=== PATIENT | female | born 1960 | race Caucasian/White ===

== ENCOUNTER → 2023-08-11 07:12 | Outpatient (REF) | payer OTHER, SELFPAY | LOC: WDC 07:12 | PROVIDERS: ATTENDING PHYSICIAN Obstetrics & Gynecology Gynecology; FAMILY PHYSICIAN Internal Medicine | DX: Z12.31 Encounter for screening mammogram for malignant neoplasm of breast (principal) | CPT/HCPCS: 77063; 77067 ==

== ENCOUNTER → 2023-12-27 08:06 | Outpatient (REF) | payer OTHER, SELFPAY | LOC: RAD 08:06 | PROVIDERS: ATTENDING PHYSICIAN Nurse Practitioner | DX: Z13.820 Encounter for screening for osteoporosis (principal) | CPT/HCPCS: 77080 ==

== ENCOUNTER → 2023-12-28 11:18 | Outpatient (REF) | payer OTHER, SELFPAY | LOC: RAD 11:18 | PROVIDERS: ATTENDING PHYSICIAN Internal Medicine Cardiovascular Disease; FAMILY PHYSICIAN Internal Medicine | DX: I65.23 Occlusion and stenosis of bilateral carotid arteries (principal) | CPT/HCPCS: 93880 ==

== ENCOUNTER → 2024-02-09 08:21 | Outpatient (REF) | payer OTHER, SELFPAY | LOC: RCS 08:21 | PROVIDERS: ATTENDING PHYSICIAN Internal Medicine Cardiovascular Disease; FAMILY PHYSICIAN Internal Medicine | DX: I35.1 Nonrheumatic aortic (valve) insufficiency (principal) | CPT/HCPCS: 93306; Q9957 ==

== ENCOUNTER → 2024-08-16 07:18 | Outpatient (REF) | payer MEDICARE, OTHER, SELFPAY | LOC: WDC 07:18 | PROVIDERS: ATTENDING PHYSICIAN Obstetrics & Gynecology Gynecology; FAMILY PHYSICIAN Internal Medicine | DX: Z12.31 Encounter for screening mammogram for malignant neoplasm of breast (principal) | CPT/HCPCS: 77063; 77067 ==

== ENCOUNTER → 2024-08-30 08:50 | Outpatient (REF) | payer MEDICARE, OTHER, SELFPAY | LOC: WDC 08:50 | PROVIDERS: ATTENDING PHYSICIAN Obstetrics & Gynecology Gynecology; FAMILY PHYSICIAN Internal Medicine | DX: R92.8 Other abnormal and inconclusive findings on diagnostic imaging of breast (principal) | CPT/HCPCS: 77061; 77065 ==

== ENCOUNTER → 2025-02-22 12:41 | Outpatient (REF) | payer MEDICARE, OTHER, SELFPAY | LOC: WDC 12:41 | PROVIDERS: ATTENDING PHYSICIAN Obstetrics & Gynecology Gynecology; FAMILY PHYSICIAN Internal Medicine | DX: R92.8 Other abnormal and inconclusive findings on diagnostic imaging of breast (principal) | CPT/HCPCS: 77061; 77065 ==

== ENCOUNTER 2025-04-28 17:14 | Inpatient (IN) | payer MEDICARE, OTHER, SELFPAY ==
[2025-04-28] VITALS (23 sets, daily range): BP systolic 103–168; BP diastolic 37–109; BMI 36.3; BMI 35.7
--- NOTE | 2025-04-28 14:53 | EDRN ---
Dr. Brooks in room w/ pt at this time.
[2025-04-28] MEDS: CARDIZEM 10 MG IV (15:03)
[2025-04-28] MEDS: NSS 1000 IV (15:03)
[2025-04-28 15:11] LABS: Hematocrit 46.4 % (37.0-47.0); Hemoglobin 15.9 g/dL (12.0-16.0); Mean Corp Hgb Conc. 34.3 g/dL (33.0-37.0); Mean Corpuscular Volume 84.1 fL (81.0-99.0); Nucleated Red Blood Cells % 0 %; Platelet Count 251 10^3/uL (130-400); Red Cell Dist. Width 13.9 % (11.5-14.5)
--- NOTE | 2025-04-28 15:16 | ED.GENMED ---
History of Present Illness
General
Chief Complaint: Chest Pain
Source: patient
Exam Limitations: none
Time Seen by Provider: 04/28/25 14:33
Nursing documentation reviewed up to this point in time: agreed with
History of Present Illness
History of Present Illness:
64-year-old female with history of GERD, aortic stenosis who presents to the emergency department for evaluation of chest discomfort and palpitations, shortness of breath, sweatiness. Patient reports onset of symptoms yesterday evening while at
rest of palpitations and chest discomfort that resolved after few hours. Symptoms returned this morning and have been constant all day�she describes a sensation of palpitations/'flip-flopping' of her heart associated with general chest discomfort,
feeling of shortness of breath with mild dizziness and some mild sweatiness. She denies having had similar symptoms in the past. She does see Dr. Meme Valadez for history of aortic stenosis but denies any other known cardiac issues. She does
report that she has had similar symptoms although less severe off and on for years but never persistent or severe like today. She was noted to be in atrial fibrillation on her triage EKG�this is a new diagnosis for her.
Past History
Past History
ED Past Medical History: GERD and Other (Headaches)
ED Past Surgical History: Gynecological (Uterine fibroid, D&C) and Orthopedic (Right ankle surgery with pins)
Patient has exhibited threatening behavior?: No
Social History
Tobacco: Non-smoker
Alcohol: None
Drug: None
Personal:
Living: with family
Family History
Family History: Cancer (breast cancer)
Review of Systems
Review of Systems
All Other Systems: ROS reviewed and negative except as documented in HPI and ROS
Constitutional: Denies fever
Respiratory: Reports trouble breathing; Denies cough
Cardiac: Reports chest pain, diaphoresis and palpitations; Denies syncope
ABD/GI: Denies abdominal pain, nausea or vomiting
: Denies flank pain
Musculoskeletal: Denies edema
Neurological: Reports dizzy; Denies headache
Phy Exam
Physical Exam
Physical Exam:
General: Awake, alert, oriented x3; somewhat anxious but nontoxic-appearing
Head: Normocephalic, atraumatic
Eyes: Conjunctiva normal, sclera anicteric
Throat: Airway intact, handling secretions
Neck: Trachea midline, no JVD
Lungs: Clear to auscultation bilaterally, no wheezing, rales, rhonchi
Heart: Tachycardia with irregularly irregular rhythm, no murmurs, gallops, or rubs
Abd: Soft, non distended, nontender
Neuro: Grossly intact
Skin: Warm and dry
Extremities: No edema in extremities, equal pulses in all extremities
Scores
[id number] Score for Afib Stroke Risk
Age in Years (65=0, 65-74=1, >/=75=2): 65-74
Sex (Female=+1): Female
Congestive Heart Failure History (Yes=+1): No
Hypertension History (Yes=+1): Yes
Stroke/TIA/Thromboembolism History (Yes=+2): No
Vascular Disease History (Yes=+1): No
Diabetes Mellitus (Yes=+1): No
Score: 3
Anticoagulation Recommendations: Recommend anticoagulation (as validated in nonvalvular fib)
Heart Failure Risk
Heart Failure Risk Score: Not Applicable
Heart Score for Chest Pain Patients
STEMI patient?: Not applicable
Withdrawal Assessment of Alcohol
Withdrawal Assessment Completed?: Not applicable
Course
Orders/Labs/Results
Orders:
Orders
04/28/25 14:12
ECG [Electrocardiogram (*1)] Urgent
Reason for Study: Chest Pain
EKG- Treatment ONCE
04/28/25 14:51
Complete Blood Count/With Diff Urgent
Comprehensive Metabolic Panel Urgent
Magnesium Urgent
Troponin I Urgent
04/28/25 14:57
Diltiazem HCl [Cardizem] 10 mg IV NOW STA
04/28/25 14:58
0.9% Sodium Chloride 1000 ml [Nss] 1,000 ml IV BOLUS
04/28/25 15:15
Apixaban [Eliquis] 5 mg PO ONCE ONE
04/28/25 15:16
Metoprolol Xl [Toprol Xl] 25 mg PO NOW STA
04/28/25 15:20
CR Chest Portable - 1 View Urgent
Comment:
Reason For Exam: sob, chest pain
Reason Study Needs to be Portable: Unable to Transport
04/28/25 15:22
TSH Reflex To Free T4 Urgent
04/28/25 15:58
Diltiazem 125 mg/125 ml Nss [Cardizem] 125 mg in 125 ml IV NOW
Initial dose in mg/hr, then titrate:: 5
Titrate to keep:: Heart rate 80-100 bpm
Titrate by mg/hr:: 5 mg/hr
Frequency of titrations (minutes):: 15
Maximum dose in mg/hr:: 15
04/28/25 16:37
Admit/Transfer Patient As Directed
Co-Sign Provider:
Level of Care: Inpatient admission
Assign to:: IVU
Physician / Group: mitali soni
Diagnosis: new onset afib rvr, trop vaughn ischemic demand
Reason for Hospitalization: new onset afib rvr, trop vaughn ischemic demand
Expected length of stay greater than two midnights?: Yes
ELOS- Estimated Length of Stay in days: 3
I certify the patient meets the requirements for IP care: Yes
Code Status As Directed
Resuscitation Status: Full Code
04/28/25 16:41
PRN Pain Medication Management As Directed
May give lesser potent ordered pain med per pt: Yes
preference::
Protocol:: Medication orders for pain may be administered in a
manner that supports deferring to patient preference
when the pt is:
- Requesting an ordered lesser potent pain medication.
Least to most potent pain medications are defined
as: acetaminophen < NSAID < tramadol < opioids
(morphine, oxycodone, hydromorphone).
- Requesting a lesser dose of the same medication IF
ORDERED.
- Requesting a less intrusive route of administration
if both routes are prescribed by the provider (PO <
IV).
04/28/25 18:00
Troponin I Urgent
Abnormal Lab Results
04/28/25
14:51
WBC 13.3 H 10^3/uL
(4.8-10.8)
RBC 5.52 H 10^6/uL
(4.20-5.40)
Abs Immat Gran (auto) 0.1 H 10^3/uL
(0-0.05)
Absolute Neuts (auto) 9.7 H 10^3/uL
(1.4-6.5)
Absolute Monos (auto) 1.0 H 10^3/uL
(0.1-0.6)
Immature Gran % 0.7 H %
(0-0.5)
Lymphocytes % 16.7 L %
(20.5-51.1)
Glucose 112 H mg/dl
(70-99)
Troponin I 0.161 H* ng/ml
04/28/25 14:51
04/28/25 14:51
Vital Signs
Initial and Last Documented VS:
Initial Vital Signs
Temp Pulse Resp BP Pulse Ox
36.9 C 84 16 132/103 97
04/28/25 14:18 04/28/25 14:18 04/28/25 14:18 04/28/25 14:18 04/28/25 14:18
Last Documented Vital Signs
Temp Pulse Resp BP Pulse Ox
36.9 C 136 25 147/100 97
04/28/25 14:18 04/28/25 16:51 04/28/25 16:51 04/28/25 16:51 04/28/25 16:51
MDM/Problems Addressed
Differential Diagnosis Includes:
Symptomatic A-fib, ACS, pneumonia, less likely PE
MDM/Problems Addressed:
64-year-old female presents for evaluation of palpitations associated with chest discomfort, dizziness and shortness of breath had an episode last night and then started again today and has been consistent. Has had similar episodes albeit much less
intense and shorter in duration for years now. Found to have A-fib with RVR on triage EKG. Heart rate 150s during my assessment, normotensive, no tachypnea or hypoxia, no fever. Physical exam is as noted. Plan to check basic labs, troponin,
TFTs. Check chest x-ray. Will treat with IV diltiazem and provide some IV fluids. Eliquis pending CBC to rule out thrombocytopenia or anemia ([id number]). Reassess after the above.
Heart rate greatly improved after IV diltiazem x 1 dose now heart rate in the 90s to low 100s. Will provide p.o. Toprol to try and maintain good rate control. CBC is back she does have slight leukocytosis but no anemia and acceptable
platelets�will proceed with p.o. Eliquis.
Unfortunately patient again having runs of significant tachycardia and symptoms. Will start on diltiazem infusion for rate control. Troponin was slightly elevated likely from demand we will need to trend this but suspect related to A-fib. Will
plan to admit for continued management of rapid atrial fibrillation requiring diltiazem infusion for adequate rate control. Discussed case with hospitalist for admission.
*Radiology
Radiology exam reviewed: preliminary read by ED provider
*Pulse Oximetry
SaO2: 98
Oxygen Mode of Delivery: Room air
Patient hypoxic: no (98%)
*EKG
Interpreted by ED Provider?: Yes
Heart Rate: 151
Rate: tachycardiac
Rhythm: a-fib
[place]: normal axis
Interval: normal interval
QRS Pattern: normal QRS
Ischemia: non-specific ST changes
*Critical Care Note
Total Time (30-74mins, 75-104mins- exclusive of procedures): 31
comment:
Critical care statement: A total of 31 minutes of critical care time was provided for this patient. This includes management of unstable vital signs, evaluation of the patient at bedside, frequent reassessment, discussion with
consultants/hospitalist, and review of pertinent medical records. This time was separate from time utilized to perform any aforementioned documented procedures
Data Reviewed
Source: patient and records
Patient Management
Discussion with other providers: Hospitalist (Discussed with hospitalist)
Escalation/DeEscalation of care consider admission/obs:
Admission indicated
ED Attending Note
-
Portions of this chart may have been created with voice recognition software.� Occasional wrong word or��sound alike� substitutions may have occurred due to the inherent limitations of voice recognition software.
Discharge Plan
Departure
Patient Disposition: Admit
Date of Disposition: 04/28/25
Time of Disposition: 15:59
Admit to doctor: Aurelia
Presentation/result/management discussed w/ accepting MD/DO: Hospitalist
Discharge Problem:
Atrial fibrillation with RVR
Interventions
Interventions:
*Risk Screen - Suicide Last Done: 04/28/25 14:20
*General Assessment Last Done: 04/28/25 16:56
*Neglect/Abuse Screening Last Done: 04/28/25 14:20
*ED COVID-19 Vaccine History Last Done: 04/28/25 15:05
*ED Influenza Vaccine History Last Done: 04/28/25 15:05
ED- Cardiac Assessment Last Done: 04/28/25 15:05
[2025-04-28] MEDS: ELIQUIS 5 MG PO (15:20)
[2025-04-28] MEDS: TOPROL XL 25 MG PO (15:20)
[2025-04-28 15:32] LABS: ALT (SGPT) 25 U/L (0-35); AST (SGOT) 26 U/L (14-36); Albumin 4.4 g/dl (3.5-5.0); Alkaline Phosphatase 70 U/L (38-126); Blood Urea Nitrogen 16 mg/dl (7-17); Calcium 10.2 mg/dl (8.4-10.2); Carbon Dioxide 25 mmol/L (22-30); Chloride 106 mmol/L (98-107); Estimated Creatinine Clearance 68 ml/min; Glucose 112 mg/dl (70-99); Magnesium 2.1 mg/dl (1.6-2.3); Potassium 4.2 mmol/L (3.5-5.1); Sodium 138 mmol/L (135-145); Total Protein 7.2 g/dl (6.3-8.2); eGFR > 60.00
[2025-04-28 15:47] LABS: Troponin I 0.161 ng/ml
--- NOTE | 2025-04-28 16:09 | HPS.HSE ---
Family Physician
<MEHNAZ Conde - Last Filed: 04/28/25 17:30>
-
Family Physician: Gregorio Reid
Chief Complaint
<MEHNAZ Conde - Last Filed: 04/28/25 17:30>
-
Chest pain, palpitations, shortness breath, diaphoresis
History of Present Illness
64-year-old female complaining of chest discomfort with palpitations, shortness of breath and diaphoresis starting yesterday evening along orthopnea. She states she was unable to sleep due to not being able to lie flat. She reports mild chest
discomfort currently with heart rate in the 130s. In the ER she was noted to be in rapid A-fib with RVR. She was placed on IV Cardizem and Eliquis per request of [facility] cardiology. She denies current headache, fever, chills, sore throat, abdominal
pain, nausea, vomit, diarrhea, urinary symptoms. 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
evaluation at [place], class II obesity.
Medical History
<MEHNAZ Conde - Last Filed: 04/28/25 17:30>
Past Medical History
Past Medical History: Reports Other
Additional Past Medical History:
aortic stenosis
HTN
GERD
headaches
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
Class II obesity
Additional Past Surgical History:
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
Deviated septum repair 2020
Tonsillectomy x 2
Social History
Tobacco: Non-smoker
Alcohol: None
Drug: None
Family History
Family History: Early CAD (Sister [place] age 50s) and Other (Mother CAD CABG [place] DM 2 HTN uncontrolled age 58, sister [place] age 50s DM 2 obesity HTN, sister CVA age 40 secondary possible A-fib, brother large ischemic CVA age 59 , father
unknown)
Allergies / Home Medications
Allergies reflects when Allergies were last updated in [facility].
Home Medications with original date entered in [facility]
Allergy/Medication List:
Allergies
Allergy/AdvReac Type Severity Reaction Status Date / Time
No Known Allergies Allergy Verified 11/20/21 06:33
Home Medications
calcium carbonate 1,000 mg PO DAILY 11/17/21
cholecalciferol (vitamin D3) 50 mcg (2,000 unit) capsule (Vitamin D3) 150 mcg PO DAILY 11/17/21
rizatriptan 10 mg tablet 10 mg PO PRN PRN headache 11/17/21
Lactobac no.2-Bifidobac no.1-S. thermo 112.5 billion cell capsule (Visbiome) 1 cap PO DAILY 04/28/25
aluminum hydrox-magnesium carb 160 mg-105 mg chewable tablet 2 tab PO DAILYPRN PRN stomach upset 04/28/25
amlodipine 5 mg tablet 5 mg PO DAILY 04/28/25
ibuprofen 200 mg tablet 400 mg PO DAILYPRN PRN headache 04/28/25
<Maximiliano Moses MD - Last Filed: 04/28/25 17:31>
Past Medical History
Past Surgical History: Reports Other (See H&P)
Review of Systems
<MEHNAZ Conde - Last Filed: 04/28/25 17:30>
-
History Source: Patient
A 12 point ROS was completed and negative except as noted: Yes
Constitutional: Denies Fever or Chills
EENT: Denies Sore Throat
Respiratory: Reports Trouble Breathing (With rapid heart rate); Denies Cough
Cardiac: Reports Chest Pain (With rapid A-fib), Diaphoresis (With rapid A-fib) and Palpitations
Abdomen/GI: Denies Abdominal Pain, Nausea, Vomiting or Diarrhea
: Denies Dysuria, Frequency, Flank Pain or Incontinence
Musculoskeletal: Denies Joint Pain or Joint Swelling
Skin: Denies Itching or Rash
Neurological: Denies Dizzy, Headache or Weakness
Endocrine: Reports No Symptoms
Hematologic/Lymphatic: Reports No Symptoms
Psych: Reports Calm
Physical Exam
<MEHNAZ Conde - Last Filed: 04/28/25 17:30>
Vital Signs
Vital Signs
Temp Pulse Resp BP Pulse Ox
98.5 F 102 22 151/93 98
04/28/25 14:18 04/28/25 15:20 04/28/25 15:00 04/28/25 15:20 04/28/25 15:20
Physical Exam
General: Comfortable, Conversant and Obese; No Fever or Chills
HEENT: NormoCephalic, Anicteric, Moist mucous membranes, PERRLA, [place] Conjunctivae and No Ptosis
Respiratory: Clear; No Wheezes, Rales or Rhonchi
Cardiac: S1/S2 and Irregular Rhythm (A-fib RVR heart rate 130 bpm on monitor); No Murmur, Rub, Gallop or Peripheral Edema
Breast: Deferred by me
GI: Soft, Non Tender, Non Distended, Normal Bowel Sounds and No Hepatosplenomegaly
Rectal: Deferred by Provider
Genito-urinary: Deferred by me
Musculoskeletal: No Clubbing, No Cyanosis and No Edema
Skin: Warm and Dry; No Rash
Neuro: AO x 3, No Motor Deficits, Cranial Nerves Intact and No Sensory Deficits; No Slurred Speech, Facial Droop or Tremors
Psych: Calm
Laboratory Results
<MEHNAZ Conde - Last Filed: 04/28/25 17:30>
-
04/28/25 14:51
04/28/25 14:51
Laboratory Results
Total Bilirubin 0.5 mg/dl (0.2-1.3) 04/28/25 14:51
AST 26 U/L (14-36) 04/28/25 14:51
ALT 25 U/L (0-35) 04/28/25 14:51
Alkaline Phosphatase 70 U/L (38-126) 04/28/25 14:51
Troponin I 0.161 ng/ml H* 04/28/25 14:51
Data Reviewed
<MEHNAZ Conde - Last Filed: 04/28/25 17:30>
-
Lab Data: Labs Reviewed by me
Impression/Plan
<MEHNAZ Conde - Last Filed: 04/28/25 17:30>
-
Impression/plan:
Admit to IVU
#New onset A-fib with RVR
Was given Toprol-XL 25 mg in ER and IV NSS 1 L
- IV Cardizem drip
- Start Eliquis
- Consult [facility] cardiology
- TSH pending
2D echo 02/09/2024:1. Technically limited study related to body habitus
2. Normal LV size and function, EF 60% by visual estimate.
3. Trace mitral regurgitation
4. Aortic valve poorly visualized with suspected mild-moderate regurgitation
5. Normal right heart with normal pulmonary artery pressure
#Troponin elevation likely ischemic demand due to A-fib with RVR
Strong family history early CAD 50s with mother, brother, sister
Troponin 0.161 will trend
start aspirin 81 mg daily
#HTN
BP 151/93
Continue amlodipine 5 mg daily
#Aortic stenosis patient reports mild
#GERD
-Continue calcium carbonate 1000 mg daily
#Headaches
Hold ibuprofen while on Eliquis have Tylenol for headaches
Patient advised no NSAIDs or aspirin while on Eliquis
-Continue rizatriptan as needed migraine
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
not candidate for regular CPAP or implantable CPAP had evaluation at [place] and was advised to have jaw lengthening upper and lower but opted to not have
#Class II obesity-BMI 36.3
Affects all aspects of care
Weight loss recommended
DVT prophylaxis
Patient starting Eliquis
Full code
[2025-04-28] MEDS: CARDIZEM 125 IV (16:11)
--- NOTE | 2025-04-28 17:24 | W.PN.UPDATE ---
Update Note
Progress Note Update
Attending note
Patient seen independently
Initial Presentation
64-year-old woman with palpitations, shortness of breath and diaphoresis starting yesterday evening along orthopnea. With mild chest discomfort currently with heart rate in the 130s. In the ER she was noted to be in rapid A-fib with RVR. She was
placed on IV Cardizem and Eliquis per request of [facility] cardiology. She denies current headache, fever, chills, sore throat, abdominal pain, nausea, vomit, diarrhea, urinary symptoms. At farrah time of my interview, her heart rate was 120s.
Past Medical History
aortic stenosis
HTN
GERD
headaches
Sleep apnea (no cpap)
Class II obesity
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
Deviated septum repair 2020
Tonsillectomy x 2
Family History
Early CAD (Sister [place] age 50s)
Mother CAD CABG [place] DM 2 HTN uncontrolled age 58,
sister [place] age 50s DM 2 obesity HTN,
sister CVA age 40 secondary possible A-fib,
brother large ischemic CVA age 59 ,
Physical Exam
General: Comfortable, Conversant and Obese
HEENT: NormoCephalic, Anicteric, Moist mucous membranes,
Respiratory: Clear; No Wheezes, Rales or Rhonchi
Cardiac: S1/S2 and Irregular Rhythm (A-fib RVR heart rate 120 bpm on monitor);
GI: Soft, Non Tender, Non Distended,
Skin: Warm and Dry; No Rash
Psych: Calm
Impression/plan:
1. New onset A-fib with RVR
- IV Cardizem drip
- Start Eliquis
- Consult [facility] cardiology
- TSH pending
2. Troponin elevation likely ischemic demand due to A-fib with RVR
Strong family history early CAD 50s with mother, brother, sister
Troponin 0.161
trend troponin
Await further cardiology recs
Daily ASA
Please see MANAGER FINANCIAL note for other details on
HTN
Aortic stenosis patient reports mild
GERD
Headaches
Sleep apnea
Class II obesity-BMI 36.3
DVT prophylaxis Patient starting Eliquis
Full code
[2025-04-28] MEDS: LOW STRENGTH ASPIRIN 81 MG PO (17:45)
--- NOTE | 2025-04-28 18:41 | PTCARENOTE ---
Patient received from ED as admission. Diltiazem gtt infusing at 5mg/hr. Patient appears to have converted to SR, ECG obtained which confirms SR on telemetry. SaO2 on RA 98%. Patient is AOx3, denies pain, ambulates independently. Patient oriented to
room and unit. Call carter within reach. Care ongoing.
[2025-04-28 18:43] LABS: Troponin I 0.105 ng/ml
--- NOTE | 2025-04-28 20:58 | PTCARENOTE ---
Pt rec'd at change of shift in bed. Sinus on telemetry. Cardizem drip maintained at 5mg/hr. Pt does not c/o pain or dizziness at this time but was made aware that she needs to call for assist when going to bathroom.
--- NOTE | 2025-04-28 22:36 | PTCARENOTE ---
Pt remains sinus on telemetry. NO C/O CP OR SOB. pT DOES REPORT FEELING DIZZY ONLY WHEN LYING ON LEFT SIDE,OTHERWISE NO COMPLAINTS
[2025-04-29] VITALS (12 sets, daily range): BP systolic 129–166; BP diastolic 51–91; PULSE 62–73; O2SAT 98
[2025-04-29 00:47] LABS: Troponin I 0.058 ng/ml
[2025-04-29 05:12] LABS: Hematocrit 41.7 % (37.0-47.0); Hemoglobin 14.3 g/dL (12.0-16.0); Mean Corp Hgb Conc. 34.3 g/dL (33.0-37.0); Mean Corpuscular Volume 86.3 fL (81.0-99.0); Nucleated Red Blood Cells % 0 %; Platelet Count 222 10^3/uL (130-400); Red Cell Dist. Width 14.0 % (11.5-14.5)
[2025-04-29 05:43] LABS: ALT (SGPT) 22 U/L (0-35); AST (SGOT) 22 U/L (14-36); Albumin 3.7 g/dl (3.5-5.0); Alkaline Phosphatase 57 U/L (38-126); Blood Urea Nitrogen 14 mg/dl (7-17); Calcium 8.9 mg/dl (8.4-10.2); Carbon Dioxide 24 mmol/L (22-30); Chloride 108 mmol/L (98-107); Estimated Creatinine Clearance 67 ml/min; Glucose 113 mg/dl (70-99); HDL Cholesterol 50 mg/dl; LDL Cholesterol, Calculated 66 mg/dl; Potassium 4.0 mmol/L (3.5-5.1); Sodium 138 mmol/L (135-145); Total Protein 6.3 g/dl (6.3-8.2); Very Low Density Lipoprotein 12 mg/dl (0-30); eGFR > 60.00
--- NOTE | 2025-04-29 07:29 | W.PN.HOSP.TC ---
Today's Communication/Plan
-
see plan
Assessment / Plan
Assessment / Plan
Ms. Jie Bella is a 64 yo woman with hx OLU, obesity , GERD presents to the ER with chest discomfort and palpitations found to be in afib with RVR. She is back in sinus rhythm this morning
New onset Atrial Fibrillation with Rapid Ventricular Rate
-started on IV Cardizem in ER; DIETITIAN CHIEF Amlodipine to be replaced by oral Dilt per cards
-continue Eliquis
-[facility] consult appreciated
-TTE today
-TSH WNL
Troponin Elevation likely non-ischemic related myocardial injury in setting of RVR
-Troponin peak 0.161
-stress test as outpatient
DVT PPx Eliquis
FULL CODE
possible DC later today post Echo
Anticipated Discharge: Within 24 hours
Subjective/Interval History
-
Date of Service: April 29, 2025
no new complaints
no chest pain or shortness of breath
Objective Data
-
Labs:
Laboratory Results
04/29/25 04/29/25
04:58 05:00
WBC 10.7
Hgb 14.3
Hct 41.7
Plt Count 222
Sodium 138
Potassium 4.0
Chloride 108 H
Carbon Dioxide 24
BUN 14
Creatinine 0.9
Glucose 113 H
Calcium 8.9
Total Bilirubin 0.7
AST 22
ALT 22
Alkaline Phosphatase 57
Vital Signs:
Vital Signs
Temp Pulse Resp BP Pulse Ox
97.5 F 58 18 137/62 97
04/29/25 05:04 04/29/25 06:30 04/29/25 05:04 04/29/25 05:04 04/29/25 05:04
Review of Systems
-
History Source: Patient
All other systems: Reviewed and negative
Physical Exam
-
General: No Apparent Distress
HEENT: PERRLA
Respiratory: Clear to Auscultation; Negative Wheezes
Cardiac: Regular Rhythm and S1/S2
Musculoskeletal: No Edema
Skin: Warm and Dry; Negative Rash
Neuro: AO x 3
Psych: Calm
Data Reviewed
-
Diagnostic Radiology: Report Reviewed by me
Labs: Labs Reviewed by me
[2025-04-29] MEDS: LOW STRENGTH ASPIRIN 81 MG PO (07:43)
[2025-04-29] MEDS: VISBIOME 1 CAP PO (07:43)
[2025-04-29] MEDS: ELIQUIS 5 MG PO (07:43)
[2025-04-29] MEDS: VITAMIN D3 (cholecalciferol) 150 MCG PO (07:43)
[2025-04-29] MEDS: OSCAL CAL 500 1000 MG PO (07:43)
[2025-04-29] MEDS: NORVASC 5 MG PO (07:44)
--- NOTE | 2025-04-29 08:11 | CON.CAR ---
Addendum entered and electronically signed by Ebony Campos DO 04/29/25 21:02:
I saw and examined the patient.
The [employer]ing [employer] Operator's note was reviewed and I agree with the note.
Comment: Patient was seen and examined with cardiac PA. Jie is a 64 year old female with PMH of HTN, untreated sleep apnea [follows with pulmonary/sleep medicine at [facility] and also has seen [facility] who did not qualify for
inspire], carotid artery disease, GERD, migraines, and family h/o CAD. She presented to [facility] ER for evaluation of elevated HR and shakiness and sweaty episodes that started Tuesday with associated chest tightness. She has a [employer] mobile which
noted atrial fibrillation with heart rates in the 160s�170s. In ER, noted to be in rapid atrial fibrillation which is a new diagnosis. She was started on cardizem gtt and spontaneously converted to SR overnight.
General: No acute distress, AAOX3
Neck: Negative JVD
Heart: Regular, Negative S3 positive S1/S2, Negative S4, No murmur
Lungs: CTA b/l, negative wheezes/rales/rhonchi
Abd: Positive BS, NT/ND, neg rebound/rigidity/guarding
Ext: Negative cyanosis/clubbing/edema
Neuro: nonfocal
Plan:
Plan:
New symptomatic atrial fibrillation with rapid ventricular response who converted to sinus rhythm on IV Cardizem drip
-We discussed diagnosis, pathophysiology, possible symptoms, management, and stroke risk.
-Plan for rhythm control strategy. Will transition patient's outpatient amlodipine to Cardizem CD 180 mg daily
-New Eliquis 5 mg twice daily anticoagulation for stroke risk reduction
-TSH within normal limits.
-We discussed returning to her sleep medicine specialist as discussed possible treatment options of sleep apnea related to jaw
-Outpatient arrhythmia monitoring through her [employer] mobile
Chest tightness in the setting of rapid atrial fibrillation, now chest pain-free with cardiac risk factors.
-Peak troponin 0.161
-2D echocardiogram with normal biventricular size and systolic function and mild to moderate aortic regurgitation unchanged from study in 2023
-Outpatient stress test to be arranged
-ACS warning signs reviewed
-LDL 66. Not on statin.
Stable for discharge home with outpatient cardiac follow-up
Original Note:
Consultation
Consultation Request
Date/Time Consultation Requested: 04/29/2025
Date/Time Consultation Performed: 04/29/2025
Requesting Provider: Dr. Moses
Performing Provider: Lydia Watson PA-C for Dr. Campos
Reason for Consultation: New atrial fibrillation
Medical History
-
History of Present Illness:
HPI: Jie is a 64 year old female with PMH of HTN, untreated sleep apnea, carotid artery disease, GERD, migraines, and family h/o CAD. Presented to [facility] ER for evaluation of elevated HR and shakiness and sweaty episodes. She states starting two
days ago she noted episodes of shakiness and clamminess. Episodes would come and go, but given recurrences, she decided to check her [employer] mobile. This noted possible atrial fibrillation with HR in the 160s to 170s. Also noted mild L chest pain
with these episodes. Given persistent episodes, yesterday decided to come to ER for evaluation. In ER, noted to be in rapid atrial fibrillation. She was started on cardizem gtt and spontaneously converted to SR overnight. Remains in SR this AM and
feels back to baseline. No chest pain, no shakiness, no diaphoresis. Denies any SOB currently, but has noted on occasions, while walking uphill, she has felt more SOB recently.
PMH:
HTN
OLU, not on CPAP
Carotid artery disease
Mild-Mod AI
GERD
Family h/o CAD
Migraines
Past Medical History
Past Medical History: Other (In HPI)
Past Surgical History: Orthopedic and Other (Deviated septum repair)
Social History
Tobacco: Non-Smoker
Alcohol: None
Drug: None
Employment: Employed
Family History
Family History: CAD
Allergies / Home Medications
Allergy/AdvReac Type Severity Reaction Status Date / Time
No Known Allergies Allergy Verified 11/20/21 06:33
�Medication �Instructions �Recorded �Confirmed �Type
calcium carbonate 1,000 mg PO DAILY 11/17/21 04/28/25 History
cholecalciferol (vitamin D3) 50 150 mcg PO DAILY 11/17/21 04/28/25 History
mcg (2,000 unit) capsule (Vitamin
D3)
rizatriptan 10 mg tablet 10 mg PO PRN PRN headache 11/17/21 04/28/25 History
Lactobac no.2-Bifidobac no.1-S. 1 cap PO DAILY 04/28/25 04/28/25 History
thermo 112.5 billion cell capsule
(Visbiome)
aluminum hydrox-magnesium carb 160 2 tab PO DAILYPRN PRN stomach upset 04/28/25 04/28/25 History
mg-105 mg chewable tablet
amlodipine 5 mg tablet 5 mg PO DAILY 04/28/25 04/28/25 History
ibuprofen 200 mg tablet 400 mg PO DAILYPRN PRN headache 04/28/25 04/28/25 History
Review of Systems
-
History Source: Patient
All other systems: Negative unless noted
Physical Exam
Vital Signs
Temp Pulse Resp BP Pulse Ox
98.5 F 61 20 142/51 98
04/29/25 07:30 04/29/25 07:44 04/29/25 07:30 04/29/25 07:44 04/29/25 07:43
Lab Results
04/29/25 04:58
04/29/25 05:00
Troponin I 0.058 ng/ml H* D 04/29/25 00:13
Physical Exam
General: Well Developed, Well Nourished and No Apparent Distress
HEENT: Normocephalic, Anicteric and Moist Mucous Membranes
Respiratory: Clear and Non Labored Respirations
Cardiac: S1/S2, Regular Rhythm and Murmur
Musculoskeletal: No Clubbing, No Cyanosis and No Edema
Skin: Warm and Dry
Neuro: AO x 3 and Nonfocal/Grossly Intact
Psych: Calm
Impression / Plan
-
PCP: Dr. Reid
Power And Recovery Shift Engineer: Dr. Meme Valadez
Impression:
Presented with shakiness, sweatiness, elevated HR
Paroxysmal atrial fibrillation w/ RVR, newly diagnosed
Elevated troponin
HTN
OLU, not on CPAP
Carotid artery disease
Mild-Mod AI
GERD
Family h/o CAD
Migraines
Echo 02/09/2024: EF 60%, trace MR, mild-moderate AI
Echo 04/29/2025: Study pending
Plan:
-Presented with elevated HR and episodes of shakiness/sweatiness. Found to be in new atrial fibrillation w/ RVR by initial EKG.
-Started on cardizem gtt and converted to SR overnight. Remains in SR with HR in the 60s this AM.
-Stop cardizem gtt and will start Cardizem CD 180mg daily for rate control. Stop amlodipine.
-New to Eliquis 5mg BID for anticoagulation. Will have case management check cost.
-TSH wnl at 1.81. K stable at 4.0.
-Known sleep apnea, untreated. Patient reports she was told she needed jaw lengthening surgery by sleep medicine at [facility].
-Elevated troponin noted, w/ peak 0.161, trending down thereafter. No chest pain currently. Has had mild chest discomfort while in Afib.
-Check echo. Preserved EF with mild-moderate AR by echo 01/2024.
-Will arrange OP stress testing unless WMA or new CM noted on echo.
-LDL 66. Not on statin.
-Hgb A1c pending. No h/o DM.
-Will arrange follow up.
HPI: Jie is a 64 year old female with PMH of HTN, untreated sleep apnea, carotid artery disease, GERD, migraines, and family h/o CAD. Presented to [facility] ER for evaluation of elevated HR and shakiness and sweaty episodes. She states starting two
days ago she noted episodes of shakiness and clamminess. Episodes would come and go, but given recurrences, she decided to check her [employer] mobile. This noted possible atrial fibrillation with HR in the 160s to 170s. Also noted mild L chest pain
with these episodes. Given persistent episodes, yesterday decided to come to ER for evaluation. In ER, noted to be in rapid atrial fibrillation. She was started on cardizem gtt and spontaneously converted to SR overnight. Remains in SR this AM and
feels back to baseline. No chest pain, no shakiness, no diaphoresis. Denies any SOB currently, but has noted on occasions, while walking uphill, she has felt more SOB recently.
Data Reviewed
-
EKG: Tracing Personally Visualized and interpreted
Radiology: Report Reviewed by me
Labs: Labs Reviewed by me
Old Records: Reviewed
--- NOTE | 2025-04-29 08:53 | PTCARENOTE ---
Patient received at change of shift resting in the bed. SR on telemetry. SaO2 on RA 97%. The patient denies pain. Endorses feeling dizzy at times but overall feels better. Diltiazem gtt discontinued per order. Plan of care discussed. Call carter
within reach. Care ongoing.
[2025-04-29 09:29] LABS: Glycohemoglobin (HgbA1c) 6.2 % (4.0-5.9)
--- NOTE | 2025-04-29 11:26 | CM ---
Pricing on Eliquis through the patient's [employer], id# [id number] costs $484 and then it will be $137. I placed a free 30 day eliquis coupon in the patients red discharge folder. Patient is agreeable to cost.
--- NOTE | 2025-04-29 11:28 | CM ---
Chart reviewed. Patient is independent of ADLS, lives alone in a [address], 3 [address], 0 [address]. Patient works real time analyst doing payroll. Plan is for the patient to return home. CM to follow
--- NOTE | 2025-04-29 12:22 | CARDSERVLU ---
Echocardiogram with [facility] completed after protocol screening completed. Allergies verified.
Patent IV site: _#20 Jelc____
IV site flushed with 0.9% NaCl pre and post administration.
Diluted bolus method utilized to enhance visualization of ventricular luna.
Total volume given: ___2_ mL
Patient tolerated all procedures well without complications.
--- NOTE | 2025-04-29 15:17 | W.DS.TRANS ---
DC Summary - Manager Medical Affairs
-
Discharge Instructions:
Discharge Diagnosis/Procedures Atrial Fibrillation with Rapid Ventricular Rate
Diet Regular
Activity As tolerated
Driving Restrictions As prior to admission
Bathing Restrictions None
Instructions: Apixaban
Stand-Alone Forms:
Changes to Home Medications: Yes
Discharge Medications:
DC Medications w/original date entered in [employer]
calcium carbonate 1,000 mg PO DAILY 11/17/21
cholecalciferol (vitamin D3) 50 mcg (2,000 unit) capsule (Vitamin D3) 150 mcg PO DAILY 11/17/21
rizatriptan 10 mg tablet 10 mg PO PRN PRN headache 11/17/21
Held on 04/29/25. Instructions: Resume on 05/03/25.
Lactobac no.2-Bifidobac no.1-S. thermo 112.5 billion cell capsule (Visbiome) 1 cap PO DAILY 04/28/25
aluminum hydrox-magnesium carb 160 mg-105 mg chewable tablet 2 tab PO DAILYPRN PRN stomach upset 04/28/25
apixaban 5 mg tablet (Eliquis) 5 mg PO BID #60 tabs 04/29/25
diltiazem HCl 180 mg capsule,extended release 24 hr 180 mg PO DAILY #30 caps 04/29/25
Home Medication Changes
Do not take Rizatriptan until you are told it is OK to take from outside provider (post stress test results).
STOP AMLODIPINE. This is replaced with Diltiazem which also affects heart rate.
Avoid NSAIDs (Motrin, Ibuprofen, Advil, Naproxen, Aleve) while on Eliquis to decrease bleeding risk.
You are started on Eliquis for stroke prevention. Eliquis is a blood thinner, therefore seek medical attention for any significant bleed (black or bloody stools).
Pending Results: No
--- NOTE | 2025-04-29 15:17 | W.DCSUMMARY ---
Discharge Summary
Discharge Data
Date of Admission: 04/28/25
Date of Discharge: 04/29/25
-
Pending Results: No
Hospital Course
Discharging Physician : Dr. Africa Parra
Disposition : Home
Primary care physician : Dr. Gregorio Reid
Principal Discharge diagnosis : Atrial Fibrillation with Rapid Ventricular Response, Elevated Troponin
Hospital Course :
Ms. Jie Bella is a 64 yo woman with hx OLU, obesity , GERD presents to the ER with chest discomfort and palpitations that started evening prior to presentation. Triage vitals significant for pulse up to 136, BP 147/100. EKG with atrial
fibrillation with RVR. She was started on IV Diltiazem, Eliquis and admitted to medicine with Cardiology consulting. She converted to sinus rhythm overnight. Her TRAINING GENERALIST Amlodipine is stopped and replaced with Diltiazem. TTE with EF 55-60%, results
below. She is discharged home with plans for outpatient stress test in 3 days and follow up with Cardiology.
Time spent on discharge was 31 minutes.
Important imaging findings :
TTE 04/29/25
SUMMARY
1. Normal biventricular size and systolic function with mild concentric left ventricular hypertrophy. Left ventricular ejection fraction by Nur's method with IV echo contrast 55-60%.
2. Trileaflet mildly sclerotic aortic valve with mild to moderate aortic insufficiency and normal aortic root size.
3. Mild mitral regurgitation.
4. Trace tricuspid regurgitation. Unable to estimate right heart pressures.
5. No pericardial effusion.
6. Compared to study dated 02/09/2024, no significant change.
Procedure findings :
Discharge Plan
-
Patient Disposition: Home (Routine Discharge)
Discharge Diagnosis/Procedures: Atrial Fibrillation with Rapid Ventricular Rate
Diet: Regular
Activity: As tolerated
Driving Restrictions: As prior to admission
Bathing Restrictions: None
Instructions: Apixaban
Referrals:
Gregorio Reid MD [Family Provider, Internal Medicine] - in less than 1 week
Schwoyer,Lydia, PA-C [Specified Professional Personl, Cardiology] - 05/23/25 10:00 am
Referral Note: You have a follow up visit with Dr. Valentine's PA, Lydia Watson, at the [place] office. Please call with questions.
Additional Discharge Medication Instructions: You are scheduled for a lexiscan nuclear stress test 05/02 at 11:20 AM at the [facility] and [facility]. Please call with questions. Hold Diltiazem prior to stress test.
Do not take Rizatriptan until you are told it is OK to take from outside provider (post stress test results).
STOP AMLODIPINE. This is replaced with Diltiazem which also affects heart rate.
Avoid NSAIDs (Motrin, Ibuprofen, Advil, Naproxen, Aleve) while on Eliquis to decrease bleeding risk.
You are started on Eliquis for stroke prevention. Eliquis is a blood thinner, therefore seek medical attention for any significant bleed (black or bloody stools).
Prescriptions:
New
diltiazem HCl 180 mg Capsule,Extended Release 24hr
180 mg PO DAILY Qty: 30 1RF
Eliquis 5 mg Tablet
5 mg PO BID Qty: 60 1RF
Continued
calcium carbonate 500 mg calcium (1,250 mg) Tablet
1,000 mg PO DAILY
cholecalciferol (vitamin D3) [Vitamin D3] 50 mcg (2,000 unit) Capsule
150 mcg PO DAILY
Visbiome 112.5 billion cell Capsule
1 cap PO DAILY
aluminum hydrox-magnesium carb 160-105 mg Tablet,Chewable
2 tab PO DAILYPRN PRN (Reason: stomach upset)
Held
rizatriptan 10 mg Tablet
10 mg PO PRN PRN (Reason: headache)
Hold Instructions: Resume on 05/03/25.
Discontinued
amlodipine 5 mg tablet
5 mg PO DAILY
ibuprofen 200 mg Tablet
400 mg PO DAILYPRN PRN (Reason: headache)
Discharge Orders:
Discharge Patient (As Directed); Ordered 04/29/25
Ordered By: Africa Parra
Care Plan Goals
Care Plan Goals:
Problem: Readiness for enhanced knowledge related to diagnosis and treatment plan
Goal: Understand your diagnosis and treatment plan needs, including medications if applicable.
Instructions: Know your diagnosis, underlying causes and treatment plan options, including medications if applicable. Consult with your health care team to learn about your diagnosis and treatment plan, including medications if applicable.
Discharge Date and Time
Print Language: IRISH
--- NOTE | 2025-04-29 16:04 | PTCARENOTE ---
Reviewed discharge instructions with patient who verbalized understanding. Telemetry removed. PIV INT removed. Patient discharged to home with belongings, discharge instructions, own medication from home, and education packets. Information and
coupon book for Elitroyis given to patient. Patient discharged to home with friend driving.
[2025-04-29 19:32] LABS: Hepatitis C Antibody Negative (Negative)
== END 2025-04-29 16:34 | disposition home or self-care (01) | DRG 309 ==
LOC: IVU 17:14
PROVIDERS: Clinical Nurse Specialist Family Health; ADMITTING PHYSICIAN Internal Medicine; ATTENDING PHYSICIAN Student in an Organized Health Care Education/Training Program; EMERGENCY PHYSICIAN Emergency Medicine; FAMILY PHYSICIAN Internal Medicine; OTHER PHYSICIAN Internal Medicine Cardiovascular Disease
DX: I48.0 Paroxysmal atrial fibrillation (principal); I5A Non-ischemic myocardial injury (non-traumatic); K21.9 Gastro-esophageal reflux disease without esophagitis; I35.2 Nonrheumatic aortic (valve) stenosis with insufficiency; I10 Essential (primary) hypertension; I35.8 Other nonrheumatic aortic valve disorders; G47.33 Obstructive sleep apnea (adult) (pediatric); G43.909 Migraine, unspecified, not intractable, without status migrainosus; E66.812 Obesity, class 2; Z60.2 Problems related to living alone; Z83.3 Family history of diabetes mellitus; Z82.49 Family history of ischemic heart disease and other diseases of the circulatory system; Z82.3 Family history of stroke; Z68.36 Body mass index [BMI] 36.0-36.9, adult; Z80.3 Family history of malignant neoplasm of breast; Z79.01 Long term (current) use of anticoagulants; Z79.899 Other long term (current) drug therapy
CPT/HCPCS: 71045; 80053; 80061; 83036; 83735; 84443; 84484; 85025; 86803; 93005; 93306; 96361; 96374; 96376; 97162; 99291; Q9950

== ENCOUNTER → 2025-05-02 10:59 | Outpatient (REF) | payer MEDICARE, OTHER, SELFPAY | LOC: HWRCS 10:59 | PROVIDERS: ATTENDING PHYSICIAN Internal Medicine Cardiovascular Disease; FAMILY PHYSICIAN Internal Medicine | DX: R07.89 Other chest pain (principal); R79.89 Other specified abnormal findings of blood chemistry; R06.09 Other forms of dyspnea; I48.0 Paroxysmal atrial fibrillation | CPT/HCPCS: 78452; 93017; A9500 ==

== ENCOUNTER → 2025-05-03 06:49 | Outpatient (REF) | payer MEDICARE, OTHER, SELFPAY | LOC: PAVMRI 06:49 | PROVIDERS: ATTENDING PHYSICIAN Specialist; FAMILY PHYSICIAN Internal Medicine | DX: M25.562 Pain in left knee (principal) | CPT/HCPCS: 73721 ==